=== PATIENT | male | born 1990 | race Caucasian/White ===

== ENCOUNTER 2017-04-14 17:13 | Emergency (ER) | payer OTHER ==
--- NOTE | 2017-04-14 18:46 | ED Physician Documentation ---
PD HPI LOWER EXT INJURY - Stated complaint Stated Complaint: R LEG NUMBNESS - Chief complaint Chief Complaint: Ext Problem - History obtained from History obtained from: Patient - History of Present Illness PD HPI LOW EXT INJURY LOCATION: Other (He went to a [place] last night, had a couple of drinks and sat for a long time on a hard bench. Ever since then he has had waxing and waning intermittent numbness of the right leg, often spares the area just below the popliteal fossa and left lateral calf and foot. There is no associated weakness. No headache or other neurologic symptoms.) Review of Systems Constitutional: denies: Fever, Chills Nose: reports: Reviewed and negative Cardiac: reports: Reviewed and negative Respiratory: reports: Reviewed and negative PD PAST MEDICAL HISTORY - Past Medical History Past Medical History: No - Past Surgical History Past Surgical History: No - Present Medications Home Medications: Ambulatory Orders Medication Instructions Recorded Confirmed No Known Home Medications [No 04/14/17 04/14/17 Known Home Medications] - Allergies Allergies/Adverse Reactions: Allergies Allergy/AdvReac Type Severity Reaction Status Date / Time amoxicillin AdvReac Emesis Verified 04/14/17 18:29 - Social History Does the pt smoke?: No Smoking Status: Never smoker Does the pt drink ETOH?: Yes Does the pt have substance abuse?: No - Immunizations Immunizations are current?: Yes Immunizations: TDAP current <10years PD ED PE NORMAL - Vitals Vital signs reviewed: Yes - General General: Alert and oriented X 3, No acute distress - Extremities Extremities: Other (The patient has equal and normal Achilles and patellar reflexes bilaterally. Normal sensation in all areas of the legs. Patient denies saddle anesthesia. Normal strength in flexion-extension at the ankles, knees, and flexion of the hips. Sharp versus dull discrimination was tested throughout the right leg and he had no deficits.) - Neuro Neuro: Alert and oriented X 3 Eye Opening: Spontaneous Motor: Obeys Commands Verbal: Oriented GCS Score: 15 Results - Vitals Vitals: Vital Signs - 24 hr 04/14/17 17:28 Temperature 36.5 C Heart Rate 88 Respiratory 18 Rate Blood Pressure 148/86 H O2 Saturation 100 Oxygen O2 Source Room air PD MEDICAL DECISION MAKING - ED course ED course: This young man has a neuropraxia from sitting too long on the right leg, there were no other concerning findings and he was reassured that this should resolve with no treatment. Follow-up was advised if it does not. Departure - Departure Disposition: 01 Home, Self Care Clinical Impression: Neuropraxia of right lower extremity Qualifiers: Encounter type: initial encounter Qualified Code(s): S84.91XA - Injury of unspecified nerve at lower leg level, right leg, initial encounter Condition: Good Record reviewed to determine appropriate education?: Yes Comments: Return for new or worsening symptoms, follow-up with your doctor in 1 week if not better. Your blood pressure was elevated today on check into the emergency department. This does not mean that you have hypertension, it is a common phenomenon to come to the emergency department and have elevated blood pressure. I recommend that you see your primary care physician within the week to have it rechecked when you are feeling better. Forms: Activity restrictions
[2017-04-14 18:55] VITALS: BP 157/95
== END 2017-04-14 18:46 | disposition home or self-care (01) ==
LOC: ED 17:13
DX: S84.91XA Injury of unspecified nerve at lower leg level, right leg, initial encounter (principal); X50.1XXA Overexertion from prolonged static or awkward postures, initial encounter; R03.0 Elevated blood-pressure reading, without diagnosis of hypertension
CPT/HCPCS: 99283